=== PATIENT | female | born 2005 | race Caucasian/White ===

== ENCOUNTER 2023-09-02 20:43 | Emergency (ER) | payer OTHER ==
[~2023-09-02] VITALS: Ht 170.2 cm; Wt 59.0 kg
[2023-09-02 21:00] VITALS: BP_SYST 135; PULSE 120; RESP 25; TEMP 100.2; O2SAT 97
[2023-09-02 21:37] LABS: INFLUENZA TYPE A Negative (NEGATIVE); INFLUENZA TYPE B NEGATIVE (NEGATIVE)
[2023-09-02] MEDS ORDERED: AUG875 PO (22:03)
[2023-09-02 22:09] VITALS: BP_SYST 135; PULSE 120; RESP 25; TEMP 100.2; O2SAT 97
== END 2023-09-02 22:09 | disposition home or self-care (01) ==
LOC: SED 20:43
DX: J02.9 Acute pharyngitis, unspecified (principal); Z20.822 Contact with and (suspected) exposure to COVID-19; Z98.890 Other specified postprocedural states
CPT/HCPCS: 36415; 99283